=== PATIENT | female | born 1950 | race Two or more races ===

== ENCOUNTER 2016-12-20 11:46 | Day surgery (SDC) | payer OTHER ==
--- NOTE | ~2016-12-20 | EGD ---
EGD REPORT [facility] [address] [id number] NAME: SHARMAINE RICHARDS : [birth year] STATUS : REG [facility]#: [id number] AGE: 66 ADM/REG DATE : 12/20/16 MR#: [id number] REPORT SERV DATE: 12/20/16 DICTATED BY: GRISELDA WELSH DATE: 12/20/16 REPORT STATUS : Draft [facility]ANS[facility]IBED BY: [facility] DATE: 12/20/16 Endoscopy Center Patient Name: Sharmaine Richards Date of : 1950 Attending MD: GRISELDA WELSH MD Procedure Date No Time: 12/20/2016 Procedure: Upper GI endoscopy Indications: Esophageal reflux, Chronic cough Referring MD: Kamaljit Gandara MD Medicines: Sedation Required Anesthesia Staff Assistance, Monitored Anesthesia Care Complications: No immediate complications. Procedure: Pre-Anesthesia Assessment: - ASA Grade Assessment: III - A patient with severe systemic disease. After obtaining informed consent, the endoscope was passed under direct vision. Throughout the procedure, the patient's blood pressure, pulse, and oxygen saturations were monitored continuously. The [facility] [id number] was introduced through the mouth, and advanced to the second part of duodenum. The upper GI endoscopy was accomplished without difficulty. The patient tolerated the procedure well. Findings: LA Grade C (one or more mucosal breaks continuous between tops of 2 or more mucosal folds, less than 75% circumference) esophagitis with no bleeding was found in the lower third of the esophagus. Linear ulcers and single 5 x 5 mm ulcer in distal esophagus. Biopsies were taken with a cold forceps for histology. A 3 cm hiatus hernia was present. A single 7 mm sessile polyp with no stigmata of recent bleeding was found in the gastric body. The polyp was removed with a cold biopsy forceps. Resection and retrieval were complete. Patchy moderately erythematous mucosa without bleeding was found in the gastric antrum. Biopsies were taken with a cold forceps for histology. The cardia and gastric fundus were normal on retroflexion. The duodenal bulb and 2nd part of the duodenum were normal. Impression: - LA Grade C reflux esophagitis. Biopsied. - Hiatus hernia. - A single gastric polyp. Resected and retrieved. - Erythematous mucosa in the antrum. Biopsied. - Normal duodenal bulb and 2nd part of the duodenum. EGD REPORT [address] [place]. [address] NAME: SHARMAINE RICHARDS : [birth year] STATUS : REG [facility] [place] PAT#: [id number] AGE: 66 ADM/REG DATE : 12/20/16 MR#: [id number] REPORT SERV DATE: 12/20/16 DICTATED BY: GRISELDA WELSH DATE: 12/20/16 REPORT STATUS : Draft TRANSCRIBED BY: [employer] DATE: 12/20/16 Recommendation: - Patient has a contact number available for emergencies. The signs and symptoms of potential delayed complications were discussed with the patient. Return to normal activities tomorrow. Written discharge instructions were provided to the patient. - Regular diet. - Continue present medications. - Use Protonix (pantoprazole) 40 mg PO BID. - Use sucralfate suspension 1 gram PO QID. - Repeat the upper endoscopy in 2 months to check healing. - Follow an antireflux regimen. Procedure Code(s): --- Professional --- 64140, Esophagogastroduodenoscopy, flexible, transoral; with biopsy, single or multiple Diagnosis Code(s): --- Professional --- K21.0, Gastro-esophageal reflux disease with esophagitis K44.9, Diaphragmatic hernia without obstruction or gangrene K31.7, Polyp of stomach and duodenum K31.9, Disease of stomach and duodenum, unspecified R05, Cough CPT copyright 2013 [employer]. All rights reserved. The codes documented in this report are preliminary and upon immigration consultant review may be revised to meet current compliance requirements. GRISELDA WELSH MD 12/20/2016 1:29 PM This report has been signed electronically. Number of Addenda: 0 Note Initiated On: 12/20/2016 1:02 PM Scope Withdrawal Time 0 hours 0 minutes 0 seconds [address] [id number]
[~2016-12-20 11:46] MED LIST: BLACK COHOSH PO; ESTRACE0.5 MG PO; HALF81 PO; NITROSTAT0.4 MG SL; PRAVACHOL80 MG PO; PROTONIX PO; ZANTAC300 MG PO; ZETIA PO
== END 2016-12-20 23:59 | disposition home or self-care (01) ==
LOC: DMU 11:46
PROVIDERS: Internal Medicine Gastroenterology
PROC: 0DB58ZX Excision of Esophagus, Via Natural or Artificial Opening Endoscopic, Diagnostic (ICD-10-PCS; 2016-12-20)
PROC: 0DB68ZX Excision of Stomach, Via Natural or Artificial Opening Endoscopic, Diagnostic (ICD-10-PCS; principal; 2016-12-20 13:30)
DX: K20.9 Esophagitis, unspecified (principal); K31.7 Polyp of stomach and duodenum; I25.10 Atherosclerotic heart disease of native coronary artery without angina pectoris; Z95.5 Presence of coronary angioplasty implant and graft; Z88.8 Allergy status to other drugs, medicaments and biological substances; Z79.82 Long term (current) use of aspirin; Z79.899 Other long term (current) drug therapy; Z90.49 Acquired absence of other specified parts of digestive tract; Z90.710 Acquired absence of both cervix and uterus; Z98.890 Other specified postprocedural states
CPT/HCPCS: 88305